=== PATIENT | female | born 1950 | race Caucasian/White ===

== ENCOUNTER 2016-09-21 22:08 | Emergency (ER) | payer OTHER ==
--- NOTE | 2016-09-21 22:53 | ED GENERAL ADULT ---
See Addendum History of Present Illness General Chief Complaint: General Adult Stated Complaint: "FEELS LIKE SOMETHING IS STUCK IN THROAT" PER PT Source: patient Exam Limitations: no limitations Vital Signs & Intake/Output Vital Signs & Intake/Output Vital Signs Date Time Temp Pulse Resp B/P B/P Pulse O2 O2 Flow FiO2 Mean Ox Delivery Rate 09/21 2218 97.0 80 20 169/98 98 Room Air ED Intake and Output 09/22 0000 09/21 1200 Intake Total Output Total Balance Patient 165 lb Weight Allergies Coded Allergies: No Known Allergies (09/21/16) Triage Note: PER PT FEELS LIKE SOMETHING IS STRUCK IN MY THROAT THIS WEEK MAYBE SINCE YESTERDAY. ABLE TO SWALLOW LIQUIDS. Triage Nurses Notes Reviewed? yes Onset: Abrupt Duration: day(s): HPI: 09/21/16 11:25 pm 65-year-old female presents to the emergency department for sore throat and difficulty swallowing. The patient states the past 48 hours she's had difficulty swallowing. She is able to eat and drink. But she feels like every time she swallows that something is in her throat. The onset of the symptoms were abrupt, the duration has been last 48 hours, the severity significant; as her symptoms required to come to the emergency department for care. She has no fever or other complaints. Past History Travel History Traveled to [place] past 21 day No Medical History Any Pertinent Medical History? see below for history Neurological: NONE EENT: [place] Cardiovascular: NONE Respiratory: asthma Gastrointestinal: NONE Hepatic: NONE Renal: NONE Musculoskeletal: NONE Psychiatric: NONE Endocrine: hypothyroidism Surgical History Surgical History: non-contributory Psychosocial History What is your primary language [place] Tobacco Use: Never used Family History Hx Contributory? No Review of Systems Review of Systems Constitutional: Denies: fever. EENTM: Reports: throat pain. Denies: throat swelling. Respiratory: Denies: short of breath. Cardiovascular: Denies: chest pain. GI: Reports: no symptoms. Genitourinary: Reports: no symptoms. Musculoskeletal: Reports: no symptoms. Skin: Reports: no symptoms. Neurological/Psychological: Reports: no symptoms. Hematologic/Endocrine: Reports: no symptoms. Immunologic/Allergic: Reports: no symptoms. Physical Exam Physical Exam General Appearance: well developed/nourished, alert, awake, anxious, mild distress Head: atraumatic, normal appearance Eyes: Bilateral: normal appearance, PERRL, EOMI. Ears, Nose, Throat: pharyngeal erythema, no fb Neck: normal inspection, supple, full range of motion Respiratory: normal breath sounds, chest non-tender, no respiratory distress Cardiovascular: regular rate/rhythm Peripheral Pulses: 4+ radial (R), 4+ radial (L) Gastrointestinal: soft, non-tender Back: normal range of motion Extremities: normal inspection Neurologic/Psych: no motor/sensory deficits, awake, alert, oriented x 3 Skin: intact, normal color, warm/dry Core Measures ACS in differential dx? No CVA/TIA Diagnosis: No Severe Sepsis Present: No Septic Shock Present: No Progress Differential Diagnoses I considered the following diagnoses in my evaluation of the patient: [ Pharyngitis, foreign body, abscess] Plan of Care: Orders Procedure Date/time Status THROAT CULTURE W/QUICK STREP 09/21 2326 Active Initial ED EKG: none Departure Departure Disposition: HOME OR SELF CARE Condition: Stable Clinical Impression Primary Impression: Pharyngitis Referrals: ALYSSA LAGOS,NATALIE Espinosa (PCP/Family) Departure Forms: Customer Survey General Discharge Information Comments 09/22/16 12:54 am The patient tolerated a GI cocktail. She was also given Decadron. Her symptoms resolved. Soft tissue x-ray of the neck was negative. She is tolerating by mouth she has no cough or shortness of breath. Lungs are clear. She is a nonsmoker. She was instructed to take Mucinex as directed and she will follow up with ear nose and throat doctor on Sunday. Critical Care Note Critical Care Note Critical Care Time: non-applicable
--- NOTE | 2016-09-22 00:50 | RADIOLOGY REPORT ---
EXAMINATION: XR SOFT TISSUE NECK CLINICAL INDICATION: Foreign body sensation. COMPARISON: None TECHNIQUE: 2 views of the soft tissue neck were obtained. FINDINGS: Soft tissue films of the neck demonstrate a normal larynx, pharynx and upper trachea. No soft tissue swelling or opaque foreign body is demonstrated. Multilevel degenerative changes of the spine. The epiglottis is unremarkable. The lung apices are clear. IMPRESSION: No radiopaque foreign body.
[2016-09-22 00:59] VITALS: BP 166/99
== END 2016-09-22 01:05 ==
LOC: ERH 22:08
DX: J02.9 Acute pharyngitis, unspecified (principal)
CPT/HCPCS: 70360; J1100